=== PATIENT | male | born 1965 | race Caucasian/White ===

== ENCOUNTER 2017-12-02 19:58 | Inpatient (IN) | payer MEDICAID ==
[~2017-12-02] VITALS: Ht 188 cm; Wt 90.7 kg
[~2017-12-02 19:58] MED LIST: ABILIFY PO; RISPERIDAL PO; ZOLOFT PO
[2017-12-02] MEDS ORDERED: LATUDA120 MG PO (20:00)
[2017-12-02 20:48] LABS: BASOPHILS % (AUTO) 0.9 % (0.0-2.0); EOSINOPHILS % (AUTO) 0.4 % (0.0-3.0); HEMATOCRIT 42.7 % (42.0-52.0); HEMOGLOBIN 14.6 G/DL (14.2-18.0); LYMPHOCYTES % (AUTO) 14.5 % (20.0-45.0); MEAN CORPUSCULAR VOLUME 89 FL (80-99); MONOCYTES % (AUTO) 6.9 % (1.0-10.0); NEUTROPHILS % (AUTO) 77.2 % (45.0-75.0); PLATELET COUNT 220 K/UL (150-450); RED BLOOD COUNT 4.77 M/UL (4.70-6.10); RED CELL DISTRIBUTION WIDTH 11.7 % (11.6-14.8); WHITE BLOOD COUNT 14.9 K/UL (4.8-10.8)
[2017-12-02 21:10] LABS: ANION GAP 13 mmol/L (5-15); BLOOD UREA NITROGEN 6 mg/dL (7-18); CALCIUM 8.6 MG/DL (8.5-10.1); CARBON DIOXIDE 24 MMOL/L (21-32); CHLORIDE 103 MMOL/L (98-107); CREATININE 0.9 MG/DL (0.55-1.30); POTASSIUM 3.4 MMOL/L (3.5-5.1); SODIUM 140 MMOL/L (136-145)
[2017-12-02 21:15] LABS: ALANINE AMINOTRANSFERASE 38 U/L (12-78); ALBUMIN/GLOBULIN RATIO 1.4 (1.0-2.7); ALKALINE PHOSPHATASE 96 U/L (46-116); ASPARTATE AMINO TRANSFERASE 36 U/L (15-37); BILIRUBIN,TOTAL 0.6 MG/DL (0.2-1.0)
[2017-12-02 21:56] VITALS: BP 115/51
--- NOTE | 2017-12-02 22:04 | Emergency Room Report ---
History of Present Illness General Chief Complaint: Alcohol Intoxication Source: Patient (JOHN LEOS M.D.) Present Illness HPI 52-year-old male presents ED for evaluation. Patient states he's been drinking and is experiencing abdominal pain. Epigastric, 7/10, sharp, nonradiating. Denies chest pain shortness of breath. Denies nausea or vomiting. Patient states he feels depressed and wants to hurt himself. Has psychiatric history but states he is noncompliant with his medications at this time. Denies hearing voices. Denies drug use. No other aggravating relieving factors. Denies any other associated symptoms (JOHN LEOS M.D.) Allergies: Coded Allergies: DIVALPROEX SODIUM (Verified Allergy, Intermediate, 12/03/17) Patient History Past Medical History: psych hx Past Surgical History: none Pertinent Family History: none Social History: Reports: alcohol use, Denies: smoking, drug use Immunizations: UTD Reviewed Nursing Documentation: PMH: Agreed, PSxH: Agreed (JOHN LEOS M.D.) Nursing Documentation-PMH Past Medical History: No History, Except For History Of Psychiatric Problem: Yes - Bipolar Hx Neurological Problems: Yes - Herniated disk (L5) (JOHN LEOS M.D.) Review of Systems All Other Systems: negative except mentioned in HPI (JOHN LEOS M.D.) Physical Exam Vital Signs Date Time Temp Pulse Resp B/P (MAP) Pulse Ox O2 Delivery O2 Flow Rate FiO2 12/02/17 19:56 98.8 98 16 129/72 99 Room Air Sp02 EP Interpretation: reviewed, normal General Appearance: no apparent distress, alert, GCS 15, non-toxic Head: normocephalic, atraumatic Eyes: bilateral eye normal inspection, bilateral eye PERRL ENT: hearing grossly normal, normal pharynx, no angioedema, normal voice Neck: full range of motion, supple/symm/no masses Respiratory: chest non-tender, lungs clear, normal breath sounds, speaking full sentences Cardiovascular #1: regular rate, rhythm, no edema Cardiovascular #2: 2+ carotid (R), 2+ carotid (L), 2+ radial (R), 2+ radial (L) , 2+ dorsalis pedis (R), 2+ dorsalis pedis (L) Gastrointestinal: normal bowel sounds, non tender, soft, non-distended, no guarding, no rebound Rectal: deferred Genitourinary: normal inspection, no CVA tenderness Musculoskeletal: back normal, gait/station normal, normal range of motion, non- tender Neurologic: alert, oriented x3, responsive, motor strength/tone normal, sensory intact, speech normal Psychiatric: judgement/insight normal, memory normal, no delusions, depressed affect, anxious Reflexes: 3+ bicep (R), 3+ bicep (L), 3+ tricep (R), 3+ tricep (L), 3+ knee (R) , 3+ knee (L) Skin: normal color, no rash, warm/dry, well hydrated Lymphatic: no adenopathy (JOHN LEOS M.D.) Vital Signs Date Time Temp Pulse Resp B/P (MAP) Pulse Ox O2 Delivery O2 Flow Rate FiO2 12/02/17 19:56 98.8 98 16 129/72 99 Room Air Sp02 EP Interpretation: reviewed, normal General Appearance: well appearing, no apparent distress, GCS 15 Head: normocephalic Eyes: bilateral eye PERRL, bilateral eye Scleral Injection ENT: moist mucus membranes Neck: supple Respiratory: rales, wheezing, expiration Cardiovascular #1: regular rate, rhythm Cardiovascular #2: 2+ radial (R) Gastrointestinal: normal inspection, normal bowel sounds, non tender, no mass, non-distended Musculoskeletal: back normal, gait/station normal, normal range of motion Neurologic: alert, oriented x3 Suicide Risk Assessment: Suicidal Ideation: Yes Had intent to initiate attempt: Yes Pt's plan for suicide attempt: Yes Has means to complete attempt: Yes Skin: normal inspection, warm/dry (Shawn Buchanan M.D.) Procedures Critical Care Time Critical Care Time CC time 30 Critical care time endorsed for this patient for evaluation of bilateral PNA Critical care time includes review of laboratory tests, imaging including CT chest, review of EMR, review of paperwork from SNF (if available), discussion with patient and family (if available), review of code status/POLS (if available ). Critical care time also likely includes assessment of fluid status, stabilization of vital signs, selection and dosing of appropriate antibiotics, selection and dosing of Aspirin/Plavix/Heparin/Lovenox, discussion with PMD/ attending hospitalist/workers compensation legal secretary. Critical care time does not include any procedures which are documented elsewhere in this EMR. (CORTNEY LOBO M.D.) Medical Decision Making Diagnostic Impression: Primary Impression: Acute alcoholic intoxication Qualified Codes: F10.929 - Alcohol use, unspecified with intoxication, unspecified Additional Impressions: Suicidal ideation Bipolar disorder Qualified Codes: F31.62 - Bipolar disorder, current episode mixed, moderate Bilateral pneumonia Qualified Codes: J18.9 - Pneumonia, unspecified organism Labs Test 12/02/17 20:11 12/02/17 20:15 White Blood Count 14.9 K/UL (4.8-10.8) Red Blood Count 4.77 M/UL (4.70-6.10) Hemoglobin 14.6 G/DL (14.2-18.0) Hematocrit 42.7 % (42.0-52.0) Mean Corpuscular Volume 89 FL (80-99) Mean Corpuscular Hemoglobin 30.7 PG (27.0-31.0) Mean Corpuscular Hemoglobin Concent 34.3 G/DL (32.0-36.0) Red Cell Distribution Width 11.7 % (11.6-14.8) Platelet Count 220 K/UL (150-450) Mean Platelet Volume 7.8 FL (6.5-10.1) Neutrophils (%) (Auto) 77.2 % (45.0-75.0) Lymphocytes (%) (Auto) 14.5 % (20.0-45.0) Monocytes (%) (Auto) 6.9 % (1.0-10.0) Eosinophils (%) (Auto) 0.4 % (0.0-3.0) Basophils (%) (Auto) 0.9 % (0.0-2.0) Sodium Level 140 MMOL/L (136-145) Potassium Level 3.4 MMOL/L (3.5-5.1) Chloride Level 103 MMOL/L (98-107) Carbon Dioxide Level 24 MMOL/L (21-32) Anion Gap 13 mmol/L (5-15) Blood Urea Nitrogen 6 mg/dL (7-18) Creatinine 0.9 MG/DL (0.55-1.30) Estimat Glomerular Filtration Rate > 60 mL/min (>60) Glucose Level 107 MG/DL (74-106) Calcium Level 8.6 MG/DL (8.5-10.1) Total Bilirubin 0.6 MG/DL (0.2-1.0) Aspartate Amino Transf (AST/SGOT) 36 U/L (15-37) Alanine Aminotransferase (ALT/SGPT) 38 U/L (12-78) Alkaline Phosphatase 96 U/L (46-116) Total Protein 6.8 G/DL (6.4-8.2) Albumin 4.0 G/DL (3.4-5.0) Globulin 2.8 g/dL Albumin/Globulin Ratio 1.4 (1.0-2.7) Salicylates Level 2.1 ug/mL (2.8-20) Acetaminophen Level < 2 MCG/ML (10-30) Serum Alcohol 275 mg/dL (JOHN LEOS M.D.) ER Course Please see above note from Dr. Leos. Patient is complaining that intermittent right-sided chest pain somewhat pleuritic. EKG is obtained and shows no injury. Chest x-ray is unremarkable aside from rotation. Patient is given Tylenol and Mylanta. He is sleeping. C/O chest pain = pleuritic and severe. H/O Chills and possible fever with yellow phlegm (also mixed with black). CXR ordered. Patient without fever here. States suicidal. Doesn't care if lives or dies. Prior aspirin OD. Recent (1 week) start of Latuda. Unemployed cdl team truck driver. Stays with friend. AA on Tuesday. 3 days of drinking beer, then increased last night. Prior patient states he was sober 4 years. Consider psych consultation. Intent to harm self is low at this time. Feels new medication not helping. Was better on Wellbutrin and Paxil. Thoughts of OD on alcohol and meds. Albuterol ordered due to patient c/o wheezes (more rales on physical). RML infiltrate in CXR. BC not performed as possible treatment as outpatient. Antibiotics begun, though delayed due to atypical presentation. CT angio to r/o PE. CT with bilateral infiltrates. Signed out to Dr. Lobo for admission. Laboratory Tests Test 12/02/17 20:11 12/02/17 20:15 Troponin I 0.005 ng/mL (0.000-0.056) White Blood Count 14.9 K/UL (4.8-10.8) H Red Blood Count 4.77 M/UL (4.70-6.10) Hemoglobin 14.6 G/DL (14.2-18.0) Hematocrit 42.7 % (42.0-52.0) Mean Corpuscular Volume 89 FL (80-99) Mean Corpuscular Hemoglobin 30.7 PG (27.0-31.0) Mean Corpuscular Hemoglobin Concent 34.3 G/DL (32.0-36.0) Red Cell Distribution Width 11.7 % (11.6-14.8) Platelet Count 220 K/UL (150-450) Mean Platelet Volume 7.8 FL (6.5-10.1) Neutrophils (%) (Auto) 77.2 % (45.0-75.0) H Lymphocytes (%) (Auto) 14.5 % (20.0-45.0) L Monocytes (%) (Auto) 6.9 % (1.0-10.0) Eosinophils (%) (Auto) 0.4 % (0.0-3.0) Basophils (%) (Auto) 0.9 % (0.0-2.0) Sodium Level 140 MMOL/L (136-145) Potassium Level 3.4 MMOL/L (3.5-5.1) L Chloride Level 103 MMOL/L (98-107) Carbon Dioxide Level 24 MMOL/L (21-32) Anion Gap 13 mmol/L (5-15) Blood Urea Nitrogen 6 mg/dL (7-18) L Creatinine 0.9 MG/DL (0.55-1.30) Estimate Glomerular Filtration Rate > 60 mL/min (>60) Glucose Level 107 MG/DL (74-106) H Calcium Level 8.6 MG/DL (8.5-10.1) Total Bilirubin 0.6 MG/DL (0.2-1.0) Aspartate Amino Transferase (AST) 36 U/L (15-37) Alanine Aminotransferase (ALT) 38 U/L (12-78) Alkaline Phosphatase 96 U/L (46-116) Total Protein 6.8 G/DL (6.4-8.2) Albumin 4.0 G/DL (3.4-5.0) Globulin 2.8 g/dL Albumin/Globulin Ratio 1.4 (1.0-2.7) Salicylates Level 2.1 ug/mL (2.8-20) L Acetaminophen Level < 2 MCG/ML (10-30) L Serum Alcohol 275 mg/dL (Shawn Buchanan M.D.) ER Course Patient signed out to me by Dr Buchanan at 630am CT Chest shows bilateral PNA, prominently right middle lobe; no PE Vital signs stable - not septic appearing Influenza swab and blood Cx pending Empiric Abx given Endorsed to Dr Krishnan for med/surg admission as panel hospitalist at 802am Will also consult Dr Roberson for expressed SI at 802 am. Patient NOT on 5150 Hold. (CORTNEY LOBO M.D.) EKG Diagnostic Results Rate: normal Rhythm: NSR ST Segments: no acute changes (Shawn Buchanan M.D.) Rate: normal Rhythm: NSR ST Segments: no acute changes ASA given to the pt in ED: No (CORTNEY LOBO M.D.) Rhythm Strip Diag. Results EP Interpretation: yes Rhythm: NSR, no PVC's, no ectopy (Shawn Buchanan M.D.) EP Interpretation: yes Rate: 76 Rhythm: NSR, no PVC's, no ectopy (CORTNEY LOBO M.D.) Chest X-Ray Diagnostic Results Chest X-Ray Diagnostic Results : Chest X-Ray Ordered: Yes # of Views/Limited/Complete: 1 View Indication: Chest Pain Interpretation: no consolidation, no effusion, no pneumothorax Impression: No acute disease Electronically Signed by: Electronically signed by Shawn Buchanan MD (Shawn Buchanna M.D.) Chest X-Ray Diagnostic Results : Chest X-Ray Ordered: Yes # of Views/Limited/Complete: 1 View Indication: Shortness of Breath EP Interpretation: Yes Interpretation: no effusion, no pneumothorax, no acute cardiopulmonary disease, other - Right sided middle lobe infiltrate Electronically Signed by: Dr Cortney Lobo MD (CORTNEY LOBO M.D.) Last Vital Signs Date Time Temp Pulse Resp B/P (MAP) Pulse Ox O2 Delivery O2 Flow Rate FiO2 12/02/17 21:56 98.3 96 14 115/51 97 Room Air ([place],JOHN M.D.) Last Vital Signs Date Time Temp Pulse Resp B/P (MAP) Pulse Ox O2 Delivery O2 Flow Rate FiO2 12/03/17 06:54 89 19 118/66 96 Room Air 12/03/17 05:54 98.3 Status: improved (Shawn Buchanan M.D.) Status: improved (CORTNEY LOBO M.D.) Disposition: ADMITTED INPATIENT Condition: Serious JOHN LEOS M.D. Dec 02, 2017 22:04 Shawn Buchanan M.D. Dec 03, 2017 01:57 CORTNEY LOBO M.D. Dec 03, 2017 08:03
[2017-12-02] MEDS ORDERED: Mylanta II UD 30ml ORAL ONE (22:30)
[2017-12-03] VITALS (10 sets, daily range): BP systolic 94–132; BP diastolic 53–80
[2017-12-03] MEDS ORDERED: Acetaminophen 500mg (ES) tab ORAL ONE
[2017-12-03] MEDS ORDERED: oxyCODONE HCL/Acetaminophen 5/325mg ORAL ONE ×2 (02:15→02:23)
[2017-12-03] MEDS ORDERED: Albuterol ud Inhalation HHN ONE ×3 (02:15→03:15)
[2017-12-03] MEDS ORDERED: Ketorolac 30mg Inj IV ONE (03:45)
[2017-12-03] MEDS ORDERED: Morphine Sulfate 4mg/ml Inj IVP ONE (05:15)
[2017-12-03] MEDS ORDERED: DiphenhydrAMINE 50mg/ml Inj IVP ONE (06:45)
--- NOTE | 2017-12-03 08:33 | Diagnostic Imaging Report ---
Indication: Pulmonary embolism Technique: CT angiography performed utilizing thin section spiral CT and bolus contrast injection. Axial, coronal, and sagittal images were generated. Maximum intensity projections (MIPs) were obtained in the coronal and sagittal planes. Dose: Total Dose Length Product - DLP [address] Dose Index - CTDIvol(s) 21.91 mGy. Automated exposure control was utilized for dose reduction. Findings: The superior mediastinum is normal. The aorta is normal in caliber. There is no evidence of aortic dissection. The heart demonstrates no evidence of right heart strain. There is no mediastinal adenopathy. Small subcarinal nodes are present. There are no pulmonary emboli. Extensive airspace disease with air bronchograms is noted in the right middle lobe. Right lower lobe airspace disease and left lower lobe primarily interstitial disease as well as some groundglass densities are present. The liver is diffusely low density. There is a small right pleural effusion. Impression: No evidence of pulmonary emboli. Right middle lobe and right lower lobe pneumonia. Patchy pneumonia in the left lower lobe. Fatty liver. Small right pleural effusion. The above report is concordant with preliminary reading by [facility] . The CT scanner at [facility] is accredited by the [employer] and the scans are performed using protocols designed to limit radiation exposure to as low as reasonably achievable to attain images of sufficient resolution adequate for diagnostic evaluation.
--- NOTE | 2017-12-03 09:25 | Diagnostic Imaging Report ---
Indication: Chest pain Technique: XRAY Chest 1v Comparison:None Findings: The heart is normal in size. There is airspace disease in the right middle lobe obscuring the right heart border. The remainder the lungs are clear. No pleural fluid. The bones are unremarkable. Impression: Right middle lobe airspace disease consistent with pneumonia.
[2017-12-03] MEDS ORDERED: LORazepam Inj 2mg/ml 1ml IV PRN (11:45)
[2017-12-03] MEDS ORDERED: Azithromycin 500mg Inj IV ONE (17:52)
[2017-12-03] MEDS ORDERED: NS 0 ML ONE (17:54)
[2017-12-03] MEDS ORDERED: D5W 275 ML ONE (17:58)
[2017-12-03] MEDS: Azithromycin 500 MG in D5W 275 ML IV SCH (17:59)
[2017-12-03] MEDS ORDERED: cefTRIAXone 1gm/D5W 55ml IVPB SCH ×2 (18:00)
[2017-12-03] MEDS: Morphine Sulfate 2mg/ml Inj IVP PRN ×2 (18:09→20:53)
[2017-12-03] MEDS ORDERED: IBUPROFEN800 MG ORAL (18:38)
--- NOTE | 2017-12-03 20:56 | History and Physical ---
History of Present Illness General Date patient seen: Dec 04, 2017 Reason for Hospitalization: Alcohol Intoxication Present Illness HPI This is a 52 year old male with past medica history significant for depression on multiple medications, but not compliant, presents with right chest pain in the setting of acute alcohol intoxication, feeling short of breath and expression of suicidal thoughts. In the ED he was noted to be hemodynamically stable. CTA was obtained which was negative for PE, however demonstrated Right middle lobe and right lower lobe pneumonia. Patchy pneumonia in the left lower lobe. at the time of evalution on the floor he denies suicidal thoughts. No hallucinations.. Allergies: Coded Allergies: DIVALPROEX SODIUM (Verified Allergy, Intermediate, 12/03/17) Medication History Scheduled Ibuprofen* (Motrin*), 800 MG ORAL NEEDED, (Reported) Lurasidone Hcl (Latuda), 120 MG PO BEDTIME, (Reported) [Abilify], PO DAILY, (Reported) [Risperidal], PO DAILY, (Reported) [Zoloft], PO DAILY, (Reported) Patient History Healthcare decision maker Resuscitation status Advanced Directive on File Review of Systems All Other Systems: negative except mentioned in HPI Physical Exam General Appearance: WD/WN, no apparent distress HEENT: pharynx normal, supple, no JVD Neck: normal inspection Respiratory/Chest: no respiratory distress, no accessory muscle use, rhonchi - left, rhonchi - right Cardiovascular/Chest: normal peripheral pulses, normal rate, regular rhythm, no JVD Abdomen: normal bowel sounds, non tender, soft Extremities: non-tender, normal inspection, no calf tenderness Skin Exam: normal pigmentation Neurologic: alert, oriented x 3, responsive Last 24 Hour Vital Signs Date Time Temp Pulse Resp B/P (MAP) Pulse Ox O2 Delivery O2 Flow Rate FiO2 12/03/17 20:36 98.7 84 20 128/80 95 12/03/17 19:55 98.4 89 17 132/71 97 Room Air 12/03/17 19:00 89 17 132/71 97 Room Air 12/03/17 18:39 98.4 12/03/17 17:00 86 20 124/74 98 Room Air 12/03/17 15:05 79 22 94/ 96 Room Air 12/03/17 13:00 98.4 97 25 108/60 97 Room Air 12/03/17 11:23 98.4 12/03/17 11:00 97.8 75 21 107/53 94 Room Air 12/03/17 08:42 97.7 77 16 123/68 94 Room Air 12/03/17 06:54 89 19 118/66 96 Room Air 12/03/17 05:54 98.3 12/03/17 05:03 88 16 104/57 96 Room Air 12/03/17 04:41 98.3 12/03/17 03:24 98.3 12/03/17 02:56 101 14 96 Room Air 12/03/17 02:54 101 14 Room Air 12/03/17 01:35 101 14 109/64 96 Room Air 12/03/17 01:26 98.3 12/02/17 21:56 98.3 96 14 115/51 97 Room Air Intake and Output 12/02/17 12/03/17 19:00 07:00 Intake Total 1150 ml Balance 1150 ml Intake IV Total 1150 ml # Voids 1 Laboratory Tests Test 12/03/17 02:10 Urine Opiates Screen Negative (NEGATIVE) Urine Barbiturates Screen Negative (NEGATIVE) Phencyclidine (PCP) Screen Negative (NEGATIVE) Urine Amphetamines Screen Negative (NEGATIVE) Urine Benzodiazepines Screen Positive (NEGATIVE) H Urine Cocaine Screen Negative (NEGATIVE) Urine Marijuana (THC) Screen Negative (NEGATIVE) Microbiology Date/Time Source Procedure Growth Status 12/03/17 08:05 Nasal Nares Influenza Types A,B Antigen ([facility]) - Final Complete Height (Feet): 6 Height (Inches): 2.00 Weight (Pounds): 200 Medications Current Medications Medications (Trade) Dose Ordered Sig/Mikey Route PRN Reason Start Time Stop Time Status Last Admin Dose Admin Albuterol/ Ipratropium (Albuterol/ Ipratropium) 3 ml Q4HRT HHN 12/03/17 15:00 12/08/17 14:59 Azithromycin 500 mg/Dextrose 275 ml @ 275 mls/hr Q24HRS IV 12/03/17 16:00 12/09/17 16:59 12/03/17 17:59 Ceftriaxone Sodium 1 gm/ Dextrose 55 ml @ 110 mls/hr Q24H IVPB 12/03/17 18:00 12/10/17 17:59 12/03/17 18:34 Lorazepam (Ativan 2mg/ml 1ml) 1 mg Q4H PRN IV For Anxiety 12/03/17 11:45 12/10/17 11:44 Morphine Sulfate (Morphine Sulfate) 1 mg Q3H PRN IVP For Pain 12/03/17 11:45 12/10/17 11:44 12/03/17 18:09 Ondansetron HCl (Zofran) 4 mg Q4H PRN IVP Nausea & Vomiting 12/03/17 11:45 01/02/18 11:44 Assessment/Plan Assessment/Plan #multilobar pneumonia #alcohol intoxication # depression - admit inpatient - duonebs - ceftriaxone and azithro - sputum and blood cx - pain control - antiemetics - alcohol withdrawal precuation - ativan PRN - DVT ppx - 1;1 sitter - social work consult Wolfgang Ortiz M.D. Dec 03, 2017 20:56
[2017-12-04] VITALS (7 sets, daily range): BP systolic 113–127; BP diastolic 70–78
[2017-12-04] MEDS: Morphine Sulfate 2mg/ml Inj IVP PRN ×5 (00:07→23:19)
[2017-12-04] MEDS: Albuterol/Ipratropium 3ml neb HHN SCH ×4 (03:00→19:32)
[2017-12-04 07:58] LABS: BASOPHILS % (AUTO) 0.4 % (0.0-2.0); EOSINOPHILS % (AUTO) 1.2 % (0.0-3.0); HEMOGLOBIN 13.8 G/DL (14.2-18.0); LYMPHOCYTES % (AUTO) 14.2 % (20.0-45.0); MEAN CORPUSCULAR VOLUME 90 FL (80-99); NEUTROPHILS % (AUTO) 79.2 % (45.0-75.0); PLATELET COUNT 164 K/UL (150-450); RED BLOOD COUNT 4.57 M/UL (4.70-6.10); RED CELL DISTRIBUTION WIDTH 11.9 % (11.6-14.8); WHITE BLOOD COUNT 12.7 K/UL (4.8-10.8)
[2017-12-04] MEDS: Heparin 5000 units/ml inj SUBQ SCH ×2 (08:03→20:46)
[2017-12-04] MEDS ORDERED: Promethazine/Codeine 5ml UD ORAL PRN (13:00)
[2017-12-04] MEDS ORDERED: Albuterol/Ipratropium 3ml neb HHN PRN (13:00)
--- NOTE | 2017-12-04 13:18 | Consultation ---
History of Present Illness General Date patient seen: Dec 04, 2017 Time patient seen: 12:00 Chief Complaint: Alcohol Intoxication Referring physician: dr Krishnan Reason for Consultation: PNA Present Illness HPI 52-year-old male presented to ED for evaluation Initially reported that he had been drinking ETOH and had abdominal pain, 7/10, located in epigastric area No n/v/diarrhea Denied chest pain, but reported shortness of breath Wanted to hurt himself, feels depressed, hx of psychiatric disorder Non compliant with medications Workup in ED reveled leukocytosis CXR with evidence of PNA . CTA chest - Right middle lobe and right lower lobe pneumonia. Patchy pneumonia in the left lower lobe. patient was admitted for further management currently denies abdominal pain, n/v/diarrhea reports intermittent SOB, + wheezing, cough productive with yellow phlegm, R sided chest mcmullen, worse with deep breathing denies hand tremors, jitteriness Allergies: Coded Allergies: DIVALPROEX SODIUM (Verified Allergy, Intermediate, 12/03/17) Medication History Scheduled Ibuprofen* (Motrin*), 800 MG ORAL NEEDED, (Reported) Lurasidone Hcl (Latuda), 120 MG PO BEDTIME, (Reported) [Abilify], PO DAILY, (Reported) [Risperidal], PO DAILY, (Reported) [Zoloft], PO DAILY, (Reported) Patient History History Provided By: Patient Healthcare decision maker Resuscitation status Full Code Advanced Directive on File Past Medical/Surgical History Past Medical/Surgical History: (1) Bipolar disorder Review of Systems Constitutional: Reports: no symptoms Eye: Reports: no symptoms ENT: Reports: no symptoms Respiratory: Reports: see HPI Cardiovascular: Reports: no symptoms Gastrointestinal: Reports: abdominal pain - at times after drinking Genitourinary: Reports: no symptoms Musculoskeletal: Reports: no symptoms Skin: Reports: no symptoms Psychiatric: Reports: see HPI, other - bipolar, depression Neurological: Reports: no symptoms Endocrine: Reports: no symptoms Hematologic/Lymphatic: Reports: no symptoms Physical Exam General Appearance: no apparent distress, alert Lines, tubes and drains: peripheral HEENT: normocephalic, atraumatic, anicteric, mucous membranes moist Neck: normal alignment, supple Respiratory/Chest: chest wall non-tender, rhonchi - bilaterally - scattered , expiratory wheezing - rigth side Cardiovascular/Chest: normal peripheral pulses, normal rate, no JVD Abdomen: normal bowel sounds, non tender, soft Extremities: no calf tenderness Neurologic: no motor/sensory deficits, alert, oriented x 3, responsive Musculoskeletal: normal muscle bulk Last 24 Hour Vital Signs Date Time Temp Pulse Resp B/P (MAP) Pulse Ox O2 Delivery O2 Flow Rate FiO2 12/04/17 11:03 62 18 99 Room Air 21 12/04/17 10:54 60 18 98 Room Air 12/04/17 09:00 98.7 72 20 124/70 94 Room Air 12/04/17 07:22 68 18 98 Room Air 21 12/04/17 07:12 66 20 96 Room Air 21 12/04/17 07:12 66 20 Room Air 12/04/17 04:00 98.6 73 19 120/72 95 12/04/17 03:11 Room Air 12/04/17 03:11 Room Air 12/04/17 00:35 98.4 77 20 114/74 95 12/04/17 00:00 98.4 77 20 114/77 95 12/03/17 20:36 98.7 84 20 128/80 95 12/03/17 19:55 98.4 89 17 132/71 97 Room Air 12/03/17 19:00 89 17 132/71 97 Room Air 12/03/17 18:39 98.4 12/03/17 17:00 86 20 124/74 98 Room Air 12/03/17 15:05 79 22 94/ 96 Room Air 12/03/17 13:00 98.4 97 25 108/60 97 Room Air Intake and Output 12/03/17 12/04/17 19:00 07:00 Intake Total 275 ml 295 ml Balance 275 ml 295 ml Intake Oral 240 ml IV Total 275 ml 55 ml # Voids 1 Laboratory Tests Test 12/04/17 07:17 White Blood Count 12.7 K/UL (4.8-10.8) H Red Blood Count 4.57 M/UL (4.70-6.10) L Hemoglobin 13.8 G/DL (14.2-18.0) L Hematocrit 41.0 % (42.0-52.0) L Mean Corpuscular Volume 90 FL (80-99) Mean Corpuscular Hemoglobin 30.3 PG (27.0-31.0) Mean Corpuscular Hemoglobin Concent 33.7 G/DL (32.0-36.0) Red Cell Distribution Width 11.9 % (11.6-14.8) Platelet Count 164 K/UL (150-450) Mean Platelet Volume 8.3 FL (6.5-10.1) Neutrophils (%) (Auto) 79.2 % (45.0-75.0) H Lymphocytes (%) (Auto) 14.2 % (20.0-45.0) L Monocytes (%) (Auto) 5.0 % (1.0-10.0) Eosinophils (%) (Auto) 1.2 % (0.0-3.0) Basophils (%) (Auto) 0.4 % (0.0-2.0) Pro-B-Type Natriuretic Peptide 426 pg/mL (0-125) H Height (Feet): 6 Height (Inches): 2.00 Weight (Pounds): 200 Medications Current Medications Medications (Trade) Dose Ordered Sig/Mikey Route PRN Reason Start Time Stop Time Status Last Admin Dose Admin Albuterol/ Ipratropium (Albuterol/ Ipratropium) 3 ml Q4HRT HHN 12/03/17 15:00 12/08/17 14:59 12/04/17 10:54 Azithromycin 500 mg/Dextrose 275 ml @ 275 mls/hr Q24HRS IV 12/03/17 16:00 12/09/17 16:59 12/03/17 17:59 Ceftriaxone Sodium 1 gm/ Dextrose 55 ml @ 110 mls/hr Q24H IVPB 12/03/17 18:00 12/10/17 17:59 12/03/17 18:34 Heparin Sodium (Porcine) (Heparin 5000 units/ml) 5,000 units EVERY 12 HOURS SUBQ 12/04/17 09:00 01/03/18 08:59 12/04/17 08:03 Ibuprofen (Motrin) 800 mg EVERY 8 HOURS PRN ORAL For Pain 12/04/17 01:30 01/03/18 01:29 Lorazepam (Ativan 2mg/ml 1ml) 1 mg Q4H PRN IV For Anxiety 12/03/17 11:45 12/10/17 11:44 Morphine Sulfate (Morphine Sulfate) 1 mg Q3H PRN IVP For Pain 1/20/18 11:45 12/10/17 11:44 12/04/17 08:02 Ondansetron HCl (Zofran) 4 mg Q4H PRN IVP Nausea & Vomiting 12/03/17 11:45 01/02/18 11:44 Assessment/Plan Assessment/Plan ASSESSMENT bilateral PNA COPD exacerbation ETOH intoxication SI bipolar disorder nicotine dependency with withdrawal PLAN OF CARE MS floor O2 titrate prn HHN ac and prn empiric abx, sputum cx IV steroids and taper a/tussive prn fup with CXR add Thiamine, Folic acid check Mg in am prn Ativan not in withdrawal health counselor on abstinence from ETOH ( patient reports going to AA meetings) health counselor on smoking ce4 add Nicotine patch DVT prophylaxis psych eval- as per MD WERO taylor case discussed and evaluated by supervising physician Benito ([facility])Joan NP Dec 04, 2017 13:18
[2017-12-04] MEDS: Solu-MEDROL 40mg Inj IVP SCH ×2 (14:33→20:44)
[2017-12-04] MEDS: Cefepime HCl 1 GM in D5W 55 ML IVPB SCH (15:36)
[2017-12-04] MEDS ORDERED: Vancomycin 2gm/D5W 550ml IVPB ONE ×4 (16:00→18:30)
[2017-12-04] MEDS: Azithromycin 500 MG in D5W 275 ML IV SCH (16:26)
[2017-12-05] VITALS: BP 128/75
[2017-12-05] MEDS: Albuterol/Ipratropium 3ml neb HHN SCH ×4 (01:11→19:19)
[2017-12-05] MEDS: Cefepime HCl 1 GM in D5W 55 ML IVPB SCH ×2 (02:52→17:39)
[2017-12-05] MEDS: Solu-MEDROL 40mg Inj IVP SCH ×2 (05:29→13:18)
[2017-12-05] MEDS: Vancomycin 1.5 GM/D5W 250ML IVPB SCH ×2 (05:29→18:30)
[2017-12-05 07:23] LABS: HEMATOCRIT 42.1 % (42.0-52.0); HEMOGLOBIN 14.1 G/DL (14.2-18.0); MEAN CORPUSCULAR VOLUME 90 FL (80-99); PLATELET COUNT 184 K/UL (150-450); RED BLOOD COUNT 4.68 M/UL (4.70-6.10); RED CELL DISTRIBUTION WIDTH 11.7 % (11.6-14.8); WHITE BLOOD COUNT 8.4 K/UL (4.8-10.8)
[2017-12-05 07:33] LABS: ANION GAP 10 mmol/L (5-15); BLOOD UREA NITROGEN 10 mg/dL (7-18); CALCIUM 9.4 MG/DL (8.5-10.1); CARBON DIOXIDE 26 MMOL/L (21-32); CHLORIDE 102 MMOL/L (98-107); CREATININE 0.7 MG/DL (0.55-1.30); POTASSIUM 3.8 MMOL/L (3.5-5.1); SODIUM 138 MMOL/L (136-145)
[2017-12-05 08:00] VITALS: BP 120/72
[2017-12-05] MEDS ORDERED: Thiamine 100mg tab ORAL SCH (09:00)
[2017-12-05] MEDS: Heparin 5000 units/ml inj SUBQ SCH (09:20)
[2017-12-05 12:00] VITALS: BP 135/68
[2017-12-05] MEDS ORDERED: ADVAIR 250-501 EACH INH (13:33)
[2017-12-05] MEDS ORDERED: VENTOLIN HFA18 GM INH (13:33)
[2017-12-05] MEDS ORDERED: LEVAQUIN750 MG ORAL (13:33)
[2017-12-05] MEDS ORDERED: PREDNISONE20 MG ORAL (13:33)
[2017-12-05] MEDS ORDERED: MUCINEX600 MG PO (13:35)
[2017-12-05] MEDS ORDERED: GUAIFENESIN-CO118 M1 ORAL (13:35)
[2017-12-05] MEDS ORDERED: BUPROPION XL300 M1 PO (13:49)
[2017-12-05] MEDS ORDERED: PAXIL40 MG ORAL (13:49)
--- NOTE | 2017-12-05 15:10 | Pulmonology Progress Note ---
Assessment/Plan Problems: (1) Bipolar disorder (2) Bilateral pneumonia Assessment/Plan improving check sputum IV or po abx chest pt ok to dc on oral abx Subjective ROS Limited/Unobtainable: No Allergies: Coded Allergies: DIVALPROEX SODIUM (Verified Allergy, Intermediate, 12/03/17) Objective Last 24 Hour Vital Signs Date Time Temp Pulse Resp B/P (MAP) Pulse Ox O2 Delivery O2 Flow Rate FiO2 12/05/17 13:34 80 21 95 Room Air 21 12/05/17 13:26 74 21 96 Room Air 21 12/05/17 08:00 97.4 94 20 120/72 93 12/05/17 07:41 67 21 98 Room Air 21 12/05/17 07:31 61 21 Room Air 12/05/17 07:31 61 21 95 Room Air 21 12/05/17 01:26 78 18 99 Room Air 12/05/17 01:12 67 18 96 Room Air 12/05/17 00:00 98.2 77 17 128/75 98 Room Air 12/04/17 20:00 98.6 88 17 118/72 96 Room Air 12/04/17 19:44 75 18 99 Room Air 21 12/04/17 19:33 71 21 96 Room Air 12/04/17 19:33 71 21 Room Air 12/04/17 16:00 98.6 20 20 127/78 94 Room Air Intake and Output 12/04/17 12/05/17 19:00 07:00 Intake Total 550 ml Balance 550 ml Intake Oral 550 ml # Voids 3 2 Objective General Appearance: no acute distress, other - A/A/O x 3 morbidly obese AA male in NAD HEENT: normocephalic, atraumatic, anicteric, mucous membranes moist Respiratory/Chest: lungs clear -with moderate air exchange no respiratory distress, no accessory muscle use Cardiovascular: normal rate Abdomen: normal bowel sounds, soft, non tender , obese Extremities: pedal pulses normal, other - no edema BLE Neurologic/Psychiatric: no motor/sensory deficits, alert, oriented x 3, responsive Musculoskeletal: normal muscle bulk Microbiology Date/Time Source Procedure Growth Status 12/03/17 08:00 Blood Blood Culture - Preliminary Staphylococcus Sp Coag Neg Resulted 12/03/17 08:00 Blood Blood Culture - Preliminary NO GROWTH AFTER 24 HOURS Resulted 12/03/17 11:45 Sputum Gram Stain - Final Complete 12/03/17 11:45 Sputum Sputum Culture - Final CULTURE NOT PERFORMED ... Complete 12/03/17 08:05 Nasal Nares Influenza Types A,B Antigen ([facility]) - Final Complete Laboratory Tests 12/05/17 05:50: White Blood Count 8.4, Red Blood Count 4.68L, Hemoglobin 14.1L, Hematocrit 42.1 , Mean Corpuscular Volume 90, Mean Corpuscular Hemoglobin 30.2, Mean Corpuscular Hemoglobin Concent 33.6, Red Cell Distribution Width 11.7, Platelet Count 184, Mean Platelet Volume 8.8, Neutrophils (%) (Auto) , Lymphocytes (%) ( Auto) , Monocytes (%) (Auto) , Eosinophils (%) (Auto) , Basophils (%) (Auto) , Differential Total Cells Counted 100, Neutrophils % (Manual) 87H, Lymphocytes % (Manual) 9L, Monocytes % (Manual) 4, Eosinophils % (Manual) 0, Basophils % ( Manual) 0, Band Neutrophils 0, Platelet Estimate Adequate, Platelet Morphology Normal, Red Blood Cell Morphology Normal, Sodium Level 138, Potassium Level 3.8 , Chloride Level 102, Carbon Dioxide Level 26, Anion Gap 10, Blood Urea Nitrogen 10, Creatinine 0.7, Estimat Glomerular Filtration Rate > 60, Glucose Level 157H, Calcium Level 9.4, Magnesium Level 1.8, Pro-B-Type Natriuretic Peptide 239H Current Medications Medications (Trade) Dose Ordered Sig/Mikey Route PRN Reason Start Time Stop Time Status Last Admin Dose Admin Albuterol/ Ipratropium (Albuterol/ Ipratropium) 3 ml Q4H PRN HHN Shortness of Breath 12/04/17 13:00 12/09/17 12:59 Albuterol/ Ipratropium (Albuterol/ Ipratropium) 3 ml Q6HRT HHN 12/04/17 19:00 12/08/17 14:59 12/05/17 13:25 Azithromycin 500 mg/Dextrose 275 ml @ 275 mls/hr Q24HRS IV 12/03/17 16:00 12/09/17 16:59 12/04/17 16:26 Cefepime HCl 1 gm/ Dextrose 55 ml @ 110 mls/hr Q12H IVPB 12/04/17 15:00 12/11/17 23:59 12/05/17 02:52 Famotidine (Pepcid) 20 mg DAILY ORAL 12/05/17 09:00 01/04/18 08:59 12/05/17 09:19 Folic Acid (Folate) 1 mg DAILY ORAL 12/05/17 09:00 01/04/18 08:59 12/05/17 09:19 Heparin Sodium (Porcine) (Heparin 5000 units/ml) 5,000 units EVERY 12 HOURS SUBQ 12/04/17 09:00 01/03/18 08:59 12/05/17 09:20 Ibuprofen (Motrin) 800 mg EVERY 8 HOURS PRN ORAL For Pain 12/04/17 01:30 01/03/18 01:29 Lorazepam (Ativan 2mg/ml 1ml) 1 mg Q4H PRN IV For Anxiety 12/03/17 11:45 12/10/17 11:44 Methylprednisolone Sodium Succinate (Solu-MEDROL) 40 mg EVERY 8 HOURS IVP 12/04/17 14:00 01/03/18 13:59 12/05/17 13:18 Morphine Sulfate (Morphine Sulfate) 1 mg Q3H PRN IVP For Pain 12/03/17 11:45 12/10/17 11:44 12/04/17 23:19 Nicotine (Nicoderm) 1 patch Q24H TDERMAL 12/04/17 14:00 01/03/18 13:59 12/05/17 13:17 Ondansetron HCl (Zofran) 4 mg Q4H PRN IVP Nausea & Vomiting 12/03/17 11:45 01/02/18 11:44 Promethazine HCl/ Codeine (Phenergan with Codeine) 5 ml EVERY 6 HOURS PRN ORAL For Cough 12/04/17 13:00 01/03/18 12:59 Thiamine HCl (Vitamin B1) 100 mg DAILY ORAL 12/05/17 09:00 01/04/18 08:59 12/05/17 09:19 Vancomycin HCl (Vanco rx to dose) 1 ea DAILY PRN MISC Per rx protocol 12/04/17 13:00 01/03/18 23:59 Vancomycin HCl/ Dextrose 250 ml @ 125 mls/hr Q12H IVPB 12/05/17 06:30 12/10/17 23:59 12/05/17 05:29 TAMARA FLOWERS Dec 05, 2017 15:10
[2017-12-05 16:00] VITALS: BP 124/70
--- NOTE | 2017-12-05 16:43 | Diagnostic Imaging Report ---
Indication: Dyspnea Technique: XRAY Chest 1v Comparison: 12/02/2017 Findings: Heart size and the sac contours are stable. There is dense consolidation of the right base compatible with the pneumonia seen on prior CT. There is patchy atelectasis at the medial left base. No pneumothorax. No acute osseous abnormality. Impression: Increased opacities at the right base likely related to the right middle lobe pneumonia noted on CT angiogram of the chest. Streaky of opacities at the medial left base possibly related to subsegmental atelectasis. Clinical correlation and follow-up exam recommended.
[2017-12-05] MEDS: Morphine Sulfate 2mg/ml Inj IVP PRN (17:43)
[2017-12-05] MEDS: Azithromycin 500 MG in D5W 275 ML IV SCH (18:25)
[2017-12-05] MEDS ORDERED: Flu Vaccine Quadrivalent 0.5ml IM ONE (18:30)
[2017-12-05] MEDS ORDERED: Tubing IV Secondary IV ONE (20:34)
[2017-12-05] MEDS ORDERED: NS 500ML ONE (20:34)
--- NOTE | 2017-12-06 01:25 | Consultation ---
History of Present Illness General Chief Complaint: Alcohol Intoxication Referring physician: dr Krishnan Reason for Consultation: PNA Present Illness HPI 52 year old male with past medica history of depression presents with right chest pain in the setting of acute alcohol intoxication, feeling short of breath and expression of suicidal thoughts. the pt was calm and stated that he has been through several acute events in his life. the pt denied si and was able to provide a safe self care plan. the pt is not at imminent dts/dto Allergies: Coded Allergies: DIVALPROEX SODIUM (Verified Allergy, Intermediate, 12/03/17) Medication History Scheduled Bupropion HCl (Bupropion Xl), 300 MG PO DAILY Fluticasone/Salmeterol (Advair 250-50 Diskus), 1 PUFF INH EVERY 12 HOURS Guaifenesin (Mucinex), 600 MG PO BID Ibuprofen* (Motrin*), 800 MG ORAL NEEDED, (Reported) Levofloxacin* (Levaquin*), 750 MG ORAL DAILY Paroxetine Hcl (Paxil), 40 MG ORAL DAILY Prednisone* (Prednisone*), 40 MG ORAL DAILY [Abilify], PO DAILY, (Reported) [Risperidal], PO DAILY, (Reported) [Zoloft], PO DAILY, (Reported) Scheduled PRN Albuterol Sulfate (Ventolin Hfa), 1 PUFF INH Q4HR PRN Guaifenesin/Codeine Phos* (Robitussin Ac*), 1 TSP ORAL Q4H PRN Discontinued Medications Lurasidone Hcl (Latuda), 120 MG PO BEDTIME, (Reported) Discontinued Reason: MD discontinued med Patient History Limited by: medical condition History Provided By: Patient, Medical Record, PMD Healthcare decision maker Resuscitation status Full Code Advanced Directive on File Physical Exam General Appearance: WD/WN, no apparent distress, alert Neurologic: alert, oriented x 3, responsive, depressed affect Last 24 Hour Vital Signs Date Time Temp Pulse Resp B/P (MAP) Pulse Ox O2 Delivery O2 Flow Rate FiO2 12/05/17 19:27 101 16 100 Room Air 21 12/05/17 19:15 94 16 Room Air 21 12/05/17 19:15 21 12/05/17 19:15 94 16 95 Room Air 21 12/05/17 18:10 97.4 12/05/17 16:00 97.5 86 18 124/70 96 12/05/17 13:34 80 21 95 Room Air 21 12/05/17 13:26 74 21 96 Room Air 21 12/05/17 12:00 98.0 92 18 135/68 98 12/05/17 08:00 97.4 94 20 120/72 93 12/05/17 07:41 67 21 98 Room Air 21 12/05/17 07:31 61 21 Room Air 21 12/05/17 07:31 61 21 95 Room Air 21 12/05/17 01:26 78 18 99 Room Air 21 Intake and Output 12/05/17 12/06/17 19:00 07:00 Intake Total 600 ml Balance 600 ml Intake Oral 600 ml # Voids 2 Laboratory Tests Test 12/05/17 05:50 White Blood Count 8.4 K/UL (4.8-10.8) Red Blood Count 4.68 M/UL (4.70-6.10) L Hemoglobin 14.1 G/DL (14.2-18.0) L Hematocrit 42.1 % (42.0-52.0) Mean Corpuscular Volume 90 FL (80-99) Mean Corpuscular Hemoglobin 30.2 PG (27.0-31.0) Mean Corpuscular Hemoglobin Concent 33.6 G/DL (32.0-36.0) Red Cell Distribution Width 11.7 % (11.6-14.8) Platelet Count 184 K/UL (150-450) Mean Platelet Volume 8.8 FL (6.5-10.1) Neutrophils (%) (Auto) % (45.0-75.0) Lymphocytes (%) (Auto) % (20.0-45.0) Monocytes (%) (Auto) % (1.0-10.0) Eosinophils (%) (Auto) % (0.0-3.0) Basophils (%) (Auto) % (0.0-2.0) Differential Total Cells Counted 100 Neutrophils % (Manual) 87 % (45-75) H Lymphocytes % (Manual) 9 % (20-45) L Monocytes % (Manual) 4 % (1-10) Eosinophils % (Manual) 0 % (0-3) Basophils % (Manual) 0 % (0-2) Band Neutrophils 0 % (0-8) Platelet Estimate Adequate Platelet Morphology Normal Red Blood Cell Morphology Normal Sodium Level 138 MMOL/L (136-145) Potassium Level 3.8 MMOL/L (3.5-5.1) Chloride Level 102 MMOL/L (98-107) Carbon Dioxide Level 26 MMOL/L (21-32) Anion Gap 10 mmol/L (5-15) Blood Urea Nitrogen 10 mg/dL (7-18) Creatinine 0.7 MG/DL (0.55-1.30) Estimat Glomerular Filtration Rate > 60 mL/min (>60) Glucose Level 157 MG/DL (74-106) H Calcium Level 9.4 MG/DL (8.5-10.1) Magnesium Level 1.8 MG/DL (1.8-2.4) Pro-B-Type Natriuretic Peptide 239 pg/mL (0-125) H Height (Feet): 6 Height (Inches): 2.00 Weight (Pounds): 200 Assessment/Plan Status: stable, progressing Cori Beth M.D. Dec 06, 2017 01:25
--- NOTE | 2017-12-07 | General Progress Note ---
Assessment/Plan Status: stable Assessment/Plan #multilobar pneumonia #alcohol intoxication # depression - duonebs - ceftriaxone and azithro--d/c on levaquin for 7 more days - solumedrol per pulm--d/c on prednisone for 4 more days - sputum and blood cx - pain control - antiemetics - alcohol withdrawal precaution - ativan PRN - DVT ppx - 1;1 sitter - social work consult - psych has seen and cleared for d/c home - d/c today D/w pt, pulm, psych regarding mgmt and dispo Subjective Date patient seen: Dec 05, 2017 Time patient seen: 12:00 ROS Limited/Unobtainable: No Constitutional: Reports: no symptoms HEENT: Reports: no symptoms Cardiovascular: Reports: no symptoms Respiratory: Reports: cough Gastrointestinal/Abdominal: Reports: no symptoms Genitourinary: Reports: no symptoms Neurologic/Psychiatric: Reports: no symptoms Endocrine: Reports: no symptoms Allergies: Coded Allergies: DIVALPROEX SODIUM (Verified Allergy, Intermediate, 12/03/17) All Systems: reviewed and negative except above Subjective No acute o/n events Pt feeling better. Psych has seen and cleared for d/c home. Cough and SOB improving. Objective Intake and Output 12/05/17 12/06/17 19:00 07:00 Intake Total 600 ml Balance 600 ml Intake Oral 600 ml # Voids 2 Height (Feet): 6 Height (Inches): 2.00 Weight (Pounds): 200 Objective General: alert, cooperative, no distress, appears stated age Head: normocephalic, without obvious abnormality, atraumatic Eyes: conjunctivae/corneas clear. PERRL, EOM's intact Throat: lips, mucosa, and tongue normal. MMM Neck: supple, symmetrical, trachea midline, and no JVD Lungs: +wheezing b/l, mild Heart: regular rate and rhythm, S1, S2 normal, no murmur, click, rub or gallop Abdomen: soft, non-tender, non-distended, bowel sounds normal; no masses or organomegaly Extremities: extremities normal, atraumatic, no cyanosis or edema Pulses: 2+ and symmetric Skin: skin color, texture, turgor normal; no rashes or lesions Neurologic: grossly normal, no focal deficits Tolu Bee M.D. Dec 07, 2017 00:00
--- NOTE | 2017-12-07 12:58 | Discharge Summary ---
Discharge Summary Hospital Course Date of Admission Dec 03, 2017 at 18:41 Date of Discharge Dec 05, 2017 at 20:35 Admitting Diagnosis bilateral PNA HPI Layo Keys is a 52 year old male who was admitted on Dec 03, 2017 at 18:41 for Pneumonia Hospital Course dc summary #[id number] Discharge Medications New Medications: Albuterol Sulfate (Ventolin Hfa) 18 Gm Hfa.aer.ad 1 PUFF INH Q4HR PRN for 30 Days, #18 GM 3 Refills shortness of breath, wheezing Bupropion HCl (Bupropion Xl) 300 Mg Tab.er.24h 300 MG PO DAILY for 30 Days, #30 TAB 1 Refill Fluticasone/Salmeterol (Advair 250-50 Diskus) 1 Each Blst.w.dev 1 PUFF INH EVERY 12 HOURS for 30 Days, #1 EA 0 Refills Guaifenesin (Mucinex) 600 Mg Tab.er.12h 600 MG PO BID for 14 Days, #30 TAB Guaifenesin/Codeine Phos* (Robitussin Ac*) 118 Ml Liquid 1 TSP ORAL Q4H PRN for 30 Days, #118 ML 1 Refill cough Levofloxacin* (Levaquin*) 750 Mg Tablet 750 MG ORAL DAILY for 7 Days, #7 TAB Paroxetine Hcl (Paxil) 40 Mg Tablet 40 MG ORAL DAILY for 30 Days, #30 TAB 1 Refill Prednisone* (Prednisone*) 20 Mg Tablet 40 MG ORAL DAILY for 4 Days, #8 TAB Continued Medications: Ibuprofen* (Motrin*) 800 Mg Tablet 800 MG ORAL NEEDED for For Pain, TAB 0 Refills [Abilify] () PO DAILY [Risperidal] () PO DAILY [Zoloft] () PO DAILY Discontinued Medications: Lurasidone Hcl (Latuda) 120 Mg Tablet 120 MG PO BEDTIME, TAB Discharge Condition Upon Discharge: stable Discharge Disposition Patient was discharged to Home (01) Discharge Diagnoses: Benito (Louie)Joan NP Dec 07, 2017 12:58
--- NOTE | 2017-12-07 18:30 | Discharge Summary 2 SIG ---
DATE OF ADMISSION: 12/03/2017 DATE OF DISCHARGE: 12/05/2017 REASON FOR ADMISSION: 52-year-old male with history of bipolar disorder presented to emergency department for evaluation. He denied chest pain, but reported shortness of breath. Initially reported that he had been drinking alcohol and had abdominal pain, located in epigastric area, but no nausea, no vomiting or diarrhea. He felt depressed. He reported noncompliance with psychiatric medication. He initially stated that he wanted to hurt himself. Workup in the emergency room revealed leukocytosis. Chest x-ray revealed evidence of multilobar pneumonia. CTA of the chest revealed right middle lobe and right lower lobe pneumonia, patchy pneumonia in the left lower lobe. Serum alcohol level-275. Upon evaluation, the patient was wheezing and had a chest tightness. The patient with a history of smoking along with alcohol intoxication. The patient was admitted for further management with diagnosis of multilobar pneumonia, COPD exacerbation, alcohol intoxication, depression, and suicidal ideation. HOSPITAL COURSE: The patient was admitted. The patient was started on IV steroids and empiric antibiotics. Supplemental oxygen was provided as needed to keep saturation above 92%. Sputum culture not collected. Blood culture preliminary negative. Influenza screen negative. Antitussive provided as needed. Ativan as needed was on the board for agitation, possible withdrawal symptoms. The patient did not appeared to be in withdrawal. Thiamine and folic acid added to existing regimen. Magnesium level -1.8, stable. Urine toxicology screen was positive for benzodiazepines. The patient was counseled on abstinence from the alcohol. The patient reported that he already was going to AA meetings. The patient was also counseled on smoking cessation. Nicotine patch was added to existing regimen. DVT prophylaxis provided. Psychiatrist seen and evaluated the patient and stated that the patient had a safe self-care plan . Per psychiatrist,the patient was not in imminent danger to self or to others. Psychiatrist cleared the patient for discharge. GI prophylaxis provided. The patient was stable for discharge on empiric oral antibiotics and short pulse of oral steroids. FINAL DIAGNOSES: 1. Bilateral pneumonia. 2. Chronic obstructive pulmonary disease exacerbation. 3. Alcohol intoxication. 4. Suicidal ideation. 5. Bipolar disorder. 6. Nicotine dependency with withdrawal. DISCHARGE MEDICATIONS: See medication reconciliation list. DISCHARGE INSTRUCTIONS: The patient was discharged home. Follow up with primary medical care provider. Delgado Krishnan M.D. Joan Oliver N.P. ([place]te[place]) DR: NIKA JOB#: [id number] CC: LINETTE
--- NOTE | 2017-12-14 17:46 | Cardiology Report ---
APPROVED REPORT EKG Measurement Heart [id number] Normal sinus rhythm Normal ECG
== END 2017-12-05 20:35 | disposition home or self-care (01) | DRG 140 ==
LOC: EDBD 19:58 → EMR 20:11 → EDBEDREQ 12-03 07:51 → 3E 12-03 18:41
DX: J44.0 Chronic obstructive pulmonary disease with (acute) lower respiratory infection (principal); J18.9 Pneumonia, unspecified organism; R45.851 Suicidal ideations; J44.1 Chronic obstructive pulmonary disease with (acute) exacerbation; F10.129 Alcohol abuse with intoxication, unspecified; F31.9 Bipolar disorder, unspecified; F17.203 Nicotine dependence unspecified, with withdrawal; Z88.8 Allergy status to other drugs, medicaments and biological substances; Z23 Encounter for immunization
CPT/HCPCS: 36415; 71045; 71275; 80048; 80053; 80307; 80329; 83735; 83880; 84484; 85007; 85025; 86710; 87040; 87070; 87181; 87205; 90630; 93005; 94640; 94664; 99291; J2405; J7620; J8499

== ENCOUNTER 2018-12-20 10:48 | Emergency (ER) | payer SELFPAY ==
[~2018-12-20] VITALS: Ht 190.5 cm; Wt 90.7 kg
[~2018-12-20 10:48] MED LIST changes: +ADVAIR 250-501 EACH INH; +BUPROPION XL300 M1 PO; +GUAIFENESIN-CO118 M1 ORAL; +IBUPROFEN800 MG ORAL; +LATUDA120 MG PO; +LEVAQUIN750 MG ORAL; +MUCINEX600 MG PO; +PAXIL40 MG ORAL; +PREDNISONE20 MG ORAL; +VENTOLIN HFA18 GM INH
[2018-12-20 10:52] VITALS: BP 135/77
--- NOTE | 2018-12-20 10:58 | NUR ---
ED Nurse Note: Pt c/o of wound on 4th finger of LT hand. Pt denies injury. He states "it just appeared".
[2018-12-20 12:00] VITALS: BP 132/75
--- NOTE | 2018-12-20 12:00 | NUR ---
ED Nurse Note: Pt. AAOx4. left with steady and all belongings. Pt. education done regarding d/c papers and prescriptions. Pt. verbalized the uderstanding of the teaching. VSS. ID armband removed.
--- NOTE | 2018-12-20 12:01 | Emergency Room Report ---
History of Present Illness General Chief Complaint: Upper Extremity Injury Source: Patient Present Illness HPI 53-year-old male presents with open wound and redness to first knuckle on left ring finger that "suddenly appeared this morning. Patient is psychiatrist was concerned because patient lives with a roommate who has multiple dogs and goes rounds that the city feeding multiple cats. Patient denies fevers, chills, pus drainage from the site. Denies any reduce range of motion to his joints of the hand. Allergies: Coded Allergies: DIVALPROEX SODIUM (Verified Allergy, Intermediate, 12/03/17) Patient History Past Medical History: psych hx Past Surgical History: none Pertinent Family History: none Social History: Reports: smoking Immunizations: UTD Reviewed Nursing Documentation: PMH: Agreed; PSxH: Agreed Nursing Documentation-PMH Past Medical History: No History, Except For Hx Cardiac Problems: No Hx Gastrointestinal Problems: No History Of Psychiatric Problem: Yes - depression Hx Neurological Problems: No Review of Systems All Other Systems: negative except mentioned in HPI Physical Exam Vital Signs Date Time Temp Pulse Resp B/P (MAP) Pulse Ox O2 Delivery O2 Flow Rate FiO2 12/20/18 10:52 98.1 66 18 135/77 97 Room Air Sp02 EP Interpretation: reviewed, normal General Appearance: normal inspection, well appearing, no apparent distress, alert, GCS 15, non-toxic Head: normocephalic, atraumatic Eyes: bilateral eye PERRL, bilateral eye EOMI ENT: normal ENT inspection, hearing grossly normal, normal pharynx, no angioedema, normal voice, TMs + canals normal, uvula midline, moist mucus membranes Neck: normal inspection, full range of motion, supple, thyroid normal, no meningismus, no bony tend Respiratory: normal inspection, lungs clear, normal breath sounds, no rhonchi, no respiratory distress, no retraction, no accessory muscle use, no wheezing, speaking full sentences Cardiovascular #1: regular rate, rhythm, no edema, no JVD, normal capillary refill Gastrointestinal: normal inspection, normal bowel sounds, non tender, soft, no mass, no peritonitis, non-distended, no guarding, no hernia, no pulsatile mass Genitourinary: no CVA tenderness Musculoskeletal: normal inspection, back normal, normal range of motion, no calf tenderness, pelvis stable, Sorin's Sign negative, other - left hand: 4th finger, first PIP joint there is skin tear with surrounding erythema, no pus. Neurologic: normal inspection, alert, oriented x3, responsive, linen controller III-XII nml as tested, motor strength/tone normal, cerebellar normal, normal gait, speech normal Psychiatric: normal inspection, judgement/insight normal, mood/affect normal, no suicidal/homicidal ideation, no delusions Skin: normal inspection, normal color, no rash Lymphatic: normal inspection, no adenopathy Medical Decision Making Diagnostic Impression: Primary Impression: Cellulitis of left ring finger ER Course VSS, afebrile Well appearing ?early cellulitis to left finger first joint Concern for zoonotic exposure at home Rx Doxy 1 week Close PMD followup DC home Last Vital Signs Date Time Temp Pulse Resp B/P (MAP) Pulse Ox O2 Delivery O2 Flow Rate FiO2 12/20/18 10:52 98.1 66 18 135/77 97 Room Air Status: improved Disposition: HOME, SELF-CARE Condition: Improved Referrals: NOT CHOSEN IPA/,REFERRING (PCP) CORTNEY LOBO M.D. Dec 20, 2018 12:01
[2018-12-20] MEDS ORDERED: DOXYCYCLINE MO100 MG ORAL (12:02)
== END 2018-12-20 12:00 | disposition home or self-care (01) ==
LOC: EMR 11:37
DX: L03.012 Cellulitis of left finger (principal); F32.9 Major depressive disorder, single episode, unspecified; Z88.8 Allergy status to other drugs, medicaments and biological substances
CPT/HCPCS: 99282